=== PATIENT | male | born 2000 | race Caucasian/White ===

== ENCOUNTER → 2024-12-04 | Outpatient (CLI) | payer SELFPAY ==
--- NOTE | 2024-12-04 14:20 | US ---
EXAMINATION TYPE: US kidneys/renal and bladder DATE OF EXAM: 12/04/2024 COMPARISON: NONE CLINICAL INDICATION: Male, 24 years old with history of Z82.49 FAMILY HX OF ISCHEMIC HEART DIS AND OT H DIS O; Family history of polycystic kidney disease TECHNIQUE: Grayscale imaging of the bilateral kidneys and urinary bladder: FINDINGS: EXAM MEASUREMENTS: Right Kidney: 11.2 x 6.2 x 6.2 cm Left Kidney: 12.2 x 5.7 x 7.3 cm Right Kidney: Multiple cysts visualized, the largest measuring 3.5 cm Left Kidney: Multiple cysts visualized, the largest measuring 3.7 cm Bladder: wnl Bilateral Jets seen: Yes There is no evidence for hydronephrosis at this point in time. No nephrolithiasis is seen. No solid masses are identified. The urinary bladder is anechoic. Thin-walled cysts of varying size and shape that do not require follow-up are seen on images saved. I ncreased cortical echogenicity bilaterally is present. IMPRESSION: Findings consistent with polycystic kidney disease are confirmed. [facility], , 12/04/2024 2:17 PM
--- NOTE | 2024-12-04 15:05 | CT ---
EXAMINATION TYPE: CT brain wo con DATE OF EXAM: 12/04/2024 COMPARISON: 01/30/2001 CLINICAL INDICATION: Male, 24 years old with history of Z82.49 FAMILY HX OF ISCHEM HEART DIS AND; PHH , Family Hx of brain aneurysm's. Hx of surgery of the head before 1 years old due to excess fluid in the head. No shunt was placed. Pt c/o headaches. CT DLP: 1210 mGycm Automated exposure control for dose reduction was used. Findings: The ventricles, basal cisterns and sulci over the convexities are moderately enlarged consistent with moderate generalized atrophy. There is no mass effect or shift of the midline structures. No abnormal density is seen throughout the brain parenchyma and there is no acute intra or extra-axia l hemorrhage. The posterior fossa including the brainstem, fourth ventricle and cerebellar pontine angles appear no rmal. Intraorbital contents appear normal and symmetric. There are mild chronic inflammatory changes in the maxillary sinuses. The mastoid air cells are well aerated.. The calvarium is intact. IMPRESSION: 1. Moderate generalized atrophy. 2. No acute bleed or mass effect. 3. Mild chronic inflammatory changes in the maxillary sinuses. [facility], , 12/04/2024 3:03 PM
== END | disposition home or self-care (01) ==
LOC: RADUSWWP 13:11
PROVIDERS: ATTEND Family Medicine
DX: J32.0 Chronic maxillary sinusitis (principal); G31.89 Other specified degenerative diseases of nervous system; Z82.71 Family history of polycystic kidney; Z82.49 Family history of ischemic heart disease and other diseases of the circulatory system
CPT/HCPCS: 70450; 76770